=== PATIENT | female | born 1990 | race African-American/Black ===

== ENCOUNTER 2017-05-09 16:11 | Emergency (ER) | payer OTHER ==
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
[2017-05-09 19:26] VITALS: BP 117/75
== END 2017-05-09 19:21 | disposition home or self-care (01) ==
LOC: ER 16:11
DX: S16.1XXA Strain of muscle, fascia and tendon at neck level, initial encounter (principal); V89.2XXA Person injured in unspecified motor-vehicle accident, traffic, initial encounter
CPT/HCPCS: 72040; 99283

== ENCOUNTER → 2019-01-26 | Outpatient (CLI) | payer BC ==
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
== END ==
LOC: RAD 16:33
PROVIDERS: ATTEND Nurse Practitioner
DX: R22.1 Localized swelling, mass and lump, neck (principal)
CPT/HCPCS: 76536